=== PATIENT | female | born 1955 | race Caucasian/White ===

== ENCOUNTER 2016-07-29 08:48 | Outpatient (CLI) | payer OTHER | END 2016-07-29 08:49 | disposition home or self-care (01) | DX: Z00.00 Encounter for general adult medical examination without abnormal findings (principal); E78.2 Mixed hyperlipidemia; Z79.899 Other long term (current) drug therapy ==

== ENCOUNTER 2017-01-11 09:49 | Outpatient (CLI) | payer OTHER ==
--- NOTE | 2017-01-11 11:41 | DEXA Report ---
DEXA SCAN: 01/11/2017 CLINICAL INDICATION: Postmenopausal. TECHNIQUE: Dual energy x-ray absorptiometry (DXA) was performed on a [employer] system. Regions measured are the AP spine, femoral neck, and, if needed, forearm. COMPARISON: None. In accordance with the International Society for Clinical Densitometry (ISCD) guidelines, data from previous exams may be reanalyzed using current recommendations and techniques. This is done to allow a more accurate basis for comparison with the current study. FINDINGS: The data for the lumbar spine is as follows: REGION BMD (g/cm/cm) T-SCORE Z-SCORE L1 1.059 -0.6 1.1 L2 1.182 -0.1 1.6 L3 1.117 -0.7 1.0 L4 1.199 0.0 1.7 TOTAL 1.141 -0.3 1.4 NOTE: All evaluable vertebrae are used for classification. The data for the hip is as follows: REGION BMD (g/cm/cm) T-SCORE Z-SCORE Neck 0.871 -1.2 0.3 TOTAL 0.937 -0.6 0.7 NOTE: The femoral neck or total proximal femur, whichever is lowest, is used for classification. IMPRESSION: THE WHO CLASSIFICATION BASED ON THE INTERNATIONAL REFERENCE STANDARD IS OSTEOPENIA (REFERENCE LEFT FEMORAL NECK). THE FRACTURE RISK IS INCREASED. RECOMMENDATION: Patients with diagnosis of osteoporosis or osteopenia should have regular bone mineral density assessment. For those eligible for Medicare, routine testing is allowed once every 2 years. Testing frequency can be increased for patients who have rapidly progressing disease or for those who are receiving medical therapy to restore bone mass. COMMENT: World Health Organization (WHO) definitions for osteoporosis and osteopenia: NORMAL BMD: T-score at -1.0 or higher, fracture risk is low. OSTEOPENIA BMD: T-score between -1.0 and -2.5, fracture risk is increased. OSTEOPOROSIS BMD: T-score at -2.5 or lower, fracture risk high. National Osteoporosis Foundation recommends: 1. Obtain adequate dietary calcium (at least 1200 mg per day) and vitamin D (400 -800 international units per day). 2. Participate, as appropriate, in regular weightbearing and muscle- strengthening exercise. 3. Avoid tobacco use and reduce alcohol and caffeine intake. 4. For more detailed information see the website at www.NOF.org. MTDD
== END 2017-01-11 09:50 | disposition home or self-care (01) ==
LOC: DI 09:49
PROVIDERS: ATTEND Physician Assistant Medical
DX: M85.88 Other specified disorders of bone density and structure, other site (principal); Z78.0 Asymptomatic menopausal state
CPT/HCPCS: 77080

== ENCOUNTER 2017-01-11 09:51 | Outpatient (CLI) | payer OTHER ==
--- NOTE | 2017-01-12 16:03 | Mammography Report ---
DIGITAL SCREENING MAMMOGRAM: 01/11/2017 CLINICAL INDICATION: A 61-year-old, for screening. COMPARISON: 12/2015, 05/2015, 09/2014, 03/2014, 08/2013, 07/2012, 07/2011, 08/2009. TECHNIQUE: Routine CC and MLO projections were obtained of the breasts. Bilateral laterally exaggera marlon craniocaudal views. FINDINGS: The breasts again demonstrate heterogeneously dense fibroglandular parenchyma bilaterally. Coarse and punctate, typically benign calcifications are present. No suspicious masses, clustered mi crocalcifications, or regions of architectural distortion are identified. IMPRESSION: BENIGN FINDINGS. RECOMMENDATION: ROUTINE ANNUAL SCREENING UNLESS OTHERWISE CLINICALLY INDICATED. BIRADS CATEGORY 2-BENIGN FINDINGS. STANDARD QUALIFYING STATEMENTS 1. This examination was reviewed with the aid of Computer-Aided Detection (CAD). 2. A negative or benign imaging report should not delay biopsy if clinically suspicious findings are present. Consider surgical consultation if warranted. More than 5% of cancers are not identified by i maging. 3. Dense breasts may obscure an underlying neoplasm. JOB #: [id number] EXT JOB #:[id number]
== END 2017-01-11 09:52 | disposition home or self-care (01) ==
LOC: DI 09:51
PROVIDERS: ATTEND Physician Assistant Medical
DX: Z12.31 Encounter for screening mammogram for malignant neoplasm of breast (principal)
CPT/HCPCS: 77067

== ENCOUNTER 2017-12-07 08:56 | Outpatient (CLI) | payer OTHER ==
[2017-12-07 09:17] LABS: BASOPHILS % (AUTO) 0.8 %; EOSINOPHILS # (AUTO) 0.1 10^3/uL (0.0-0.7); HGB - HEMOGLOBIN 14.5 g/dL (12.0-16.0); LYMPHOCYTES # (AUTO) 1.3 10^3/uL (1.5-3.5); LYMPHOCYTES % (AUTO) 25.7 %; MEAN CORPUSCULAR HEMOGLOBIN 29.2 pg (27.0-31.0); MEAN CORPUSCULAR HGB CONC 33.5 g/dL (32.0-36.0); MEAN CORPUSCULAR VOLUME 87.1 fL (81.0-99.0); MEAN PLATELET VOLUME 8.4 fL (7.9-10.8); MONOCYTES # (AUTO) 0.4 10^3/uL (0.0-1.0); MONOCYTES % (AUTO) 7.6 %; NEUTROPHILS # (AUTO) 3.3 10^3/uL (1.5-6.6); NEUTROPHILS % (AUTO) 63.9 %; PLT - PLATELET COUNT 194 10^3/uL (130-450); RED BLOOD COUNT 4.95 10^6/uL (4.20-5.40); RED CELL DISTRIBUTION WIDTH 13.2 % (12.0-15.0); WHITE BLOOD COUNT 5.2 x10^3/uL (4.8-10.8)
[2017-12-07 09:42] LABS: ALBUMIN 3.9 g/dL (3.2-5.5); ALBUMIN/GLOBULIN RATIO 1.5 (1.0-2.2); ALKALINE PHOSPHATASE 62 IU/L (42-121); ALT ALANINE AMINOTRANSFERASE 30 IU/L (10-60); AST ASPARTATE AMINOTRANSFERASE 26 IU/L (10-42); BILIRUBIN,TOTAL 0.9 mg/dL (0.2-1.0); BUN - BLOOD UREA NITROGEN 15 mg/dL (6-20); CALCIUM 8.7 mg/dL (8.5-10.3); CARBON DIOXIDE - CO2 26 mmol/L (21-32); CHLORIDE 102 mmol/L (101-111); CHOL/HDL RATIO 2.4 (<4.4); CHOLESTEROL 185 mg/dL; CREATININE 0.6 mg/dL (0.4-1.0); GFR - MDRD 101 (>89); GLUCOSE 101 mg/dL (70-100); HDL CHOLESTEROL 78 mg/dL; LDL CHOLESTEROL,CALCULATED 87 mg/dL; LDL/HDL RATIO 1.1 (<4.4); SODIUM 134 mmol/L (135-145); TOTAL PROTEIN 6.5 g/dL (6.7-8.2); VLDL CHOLESTEROL 20 mg/dL
[2017-12-08 08:27] LABS: HEPATITIS C ANTIBODY NON-REACTIVE (NON-REACTIVE)
== END 2017-12-07 08:57 | disposition home or self-care (01) ==
LOC: LAB 08:56
PROVIDERS: ATTEND Internal Medicine
DX: Z00.00 Encounter for general adult medical examination without abnormal findings (principal); K21.9 Gastro-esophageal reflux disease without esophagitis; Z79.899 Other long term (current) drug therapy; Z11.59 Encounter for screening for other viral diseases; M25.50 Pain in unspecified joint; E78.2 Mixed hyperlipidemia
CPT/HCPCS: 36415; 80053; 80061; 82306; 83721; 84443; 85025; 86803

== ENCOUNTER 2018-03-29 09:55 | Outpatient (CLI) | payer OTHER ==
--- NOTE | 2018-03-30 12:02 | Mammography Report ---
Reason: SCREEN w JEANETTE Procedure Date: 03/29/2018 Accession Number: [id number] / [id number] Procedure: LARA - Screening Mammo w/Jeanette CPT Code: FULL RESULT: EXAM: Screening Mammo w/Jeanette DATE: 03/29/2018 10:44 AM CLINICAL HISTORY: Routine screening TECHNIQUE: Bilateral CC and MLO views were obtained. COMPARISON: 01/11/2017, 12/22/2015, 06/09/2015, 09/20/2014, 04/10/2014, 08/31/2013 and 08/20/2013 FINDINGS: The breast tissue is heterogeneously dense. There is no significant interval change. No suspicious masses, clustered microcalcifications, or regions of architectural distortion are identified. IMPRESSION: Negative examination RECOMMENDATION: Routine annual screening unless otherwise clinically indicated. BIRADS CATEGORY 1: Negative STANDARD QUALIFYING STATEMENTS: 1. This examination was not reviewed with the aid of Computer-Aided Detection (CAD). 2. A negative or benign imaging report should not delay biopsy if clinically suspicious findings are present. Consider surgical consultation if warrented. More than 5% of cancers are not identified by imaging. 3. Dense breasts may obscure an underlying neoplasm. 4. This examination was reviewed with the aid of 3D breast imaging (tomosynthesis).
== END 2018-03-29 09:56 | disposition home or self-care (01) ==
LOC: DI 09:55
PROVIDERS: ATTEND Physician Assistant Medical
DX: Z12.31 Encounter for screening mammogram for malignant neoplasm of breast (principal)
CPT/HCPCS: 77063; 77067

== ENCOUNTER 2018-05-01 15:48 | Outpatient (CLI) | payer OTHER ==
--- NOTE | 2018-05-02 12:53 | XRAY Report ---
Reason: CHRONIC LUMBAR PAIN Procedure Date: 05/01/2018 Accession Number: [id number] / [id number] Procedure: XR - Lumbar Spine Complete CPT Code: FULL RESULT: EXAM: LUMBOSACRAL SPINE RADIOGRAPHY EXAM DATE: 05/01/2018 04:27 PM. CLINICAL HISTORY: CHRONIC LUMBAR PAIN. COMPARISONS: None. TECHNIQUE: 5 views. FINDINGS: Alignment: 13 degrees levoconvex curvature of the thoracolumbar spine from superior T12 to inferior L4, L2 apex. Bones: Five ohj-cph-cuowaxk lumbar vertebral bodies are present. There are diminutive T12 ribs. No fractures or bone lesions. Disks: There is mild disk space narrowing at L2-L3 and L3-L4 and L4-L5. There are small anterior osteophytes. Facets: No degenerative changes. Sacroiliac Joints: Unremarkable. Soft Tissues: The visualized bowel gas pattern is normal. IMPRESSION: Mild lumbar spondylosis RADIA
--- NOTE | 2018-05-03 05:56 | XRAY Report ---
Reason: SHIFTING SENSATION AT LEVEL OF DIAPHRAGM Procedure Date: 05/01/2018 Accession Number: [id number] / [id number] Procedure: XR - Thoracic Spine 3 View CPT Code: FULL RESULT: EXAM: THORACIC SPINE RADIOGRAPHY EXAM DATE: 05/01/2018 04:27 PM. CLINICAL HISTORY: SHIFTING SENSATION AT LEVEL OF DIAPHRAGM. COMPARISON: None. TECHNIQUE: 2 views. FINDINGS: Alignment: There is mild lateral curvature of the thoracic spine. Bones: No fractures or bone lesions. Disks: Disk heights are maintained. There are small anterior osteophytes. Soft Tissues: The visualized lungs and cardiomediastinal silhouette appear normal. IMPRESSION: Mild thoracic spondylosis RADIA ADDENDUM: 05/03/18 16:46 Correction: The technique is 3 views, one frontal view and lateral flexion and lateral extension views. There are no additional findings. There is no abnormal translation with flexion and extension.
== END 2018-05-01 15:49 | disposition home or self-care (01) ==
LOC: DI 15:48
PROVIDERS: ATTEND Physician Assistant Medical
DX: M47.9 Spondylosis, unspecified (principal); M51.86 Other intervertebral disc disorders, lumbar region
CPT/HCPCS: 72072; 72110

== ENCOUNTER 2018-11-07 09:19 | Outpatient (CLI) | payer OTHER ==
[2018-11-07 09:59] LABS: BASOPHILS # (AUTO) 0.1 10^3/uL (0.0-0.1); BASOPHILS % (AUTO) 1.3 %; EOSINOPHILS # (AUTO) 0.1 10^3/uL (0.0-0.7); EOSINOPHILS % (AUTO) 1.8 %; HGB - HEMOGLOBIN 14.3 g/dL (12.0-16.0); LYMPHOCYTES # (AUTO) 1.3 10^3/uL (1.5-3.5); LYMPHOCYTES % (AUTO) 24.7 %; MEAN CORPUSCULAR HEMOGLOBIN 28.9 pg (27.0-31.0); MEAN CORPUSCULAR HGB CONC 33.4 g/dL (32.0-36.0); MEAN CORPUSCULAR VOLUME 86.4 fL (81.0-99.0); MEAN PLATELET VOLUME 8.4 fL (7.9-10.8); MONOCYTES # (AUTO) 0.5 10^3/uL (0.0-1.0); MONOCYTES % (AUTO) 8.7 %; NEUTROPHILS # (AUTO) 3.4 10^3/uL (1.5-6.6); NEUTROPHILS % (AUTO) 63.5 %; PLT - PLATELET COUNT 207 10^3/uL (130-450); RED BLOOD COUNT 4.96 10^6/uL (4.20-5.40); RED CELL DISTRIBUTION WIDTH 13.5 % (12.0-15.0); WHITE BLOOD COUNT 5.4 x10^3/uL (4.8-10.8)
[2018-11-07 10:21] LABS: ALBUMIN 3.9 g/dL (3.2-5.5); ALBUMIN/GLOBULIN RATIO 1.6 (1.0-2.2); ALKALINE PHOSPHATASE 81 IU/L (42-121); ALT ALANINE AMINOTRANSFERASE 52 IU/L (10-60); AST ASPARTATE AMINOTRANSFERASE 33 IU/L (10-42); BILIRUBIN,TOTAL 0.8 mg/dL (0.2-1.0); BUN - BLOOD UREA NITROGEN 11 mg/dL (6-20); CALCIUM 8.8 mg/dL (8.5-10.3); CARBON DIOXIDE - CO2 24 mmol/L (21-32); CHLORIDE 103 mmol/L (101-111); CHOL/HDL RATIO 2.9 (<4.4); CHOLESTEROL 189 mg/dL; CREATININE 0.6 mg/dL (0.4-1.0); GFR - MDRD 100 (>89); GLUCOSE 104 mg/dL (70-100); HDL CHOLESTEROL 65 mg/dL; LDL CHOLESTEROL,CALCULATED 99 mg/dL; LDL/HDL RATIO 1.5 (<4.4); SODIUM 138 mmol/L (135-145); TOTAL PROTEIN 6.4 g/dL (6.7-8.2); VLDL CHOLESTEROL 25 mg/dL
== END 2018-11-07 09:20 | disposition home or self-care (01) ==
LOC: LAB 09:19
PROVIDERS: ATTEND Family Medicine
DX: E78.2 Mixed hyperlipidemia (principal); M60.9 Myositis, unspecified; Z13.89 Encounter for screening for other disorder; Z79.899 Other long term (current) drug therapy; M54.9 Dorsalgia, unspecified; G25.81 Restless legs syndrome
CPT/HCPCS: 36415; 80053; 80061; 83721; 84443; 85025

== ENCOUNTER 2019-07-06 08:33 | Outpatient (CLI) | payer OTHER ==
[2019-07-06 09:20] LABS: HGB - HEMOGLOBIN 15.1 g/dL (12.0-16.0); MEAN CORPUSCULAR HEMOGLOBIN 29.8 pg (27.0-31.0); MEAN CORPUSCULAR HGB CONC 34.2 g/dL (32.0-36.0); MEAN CORPUSCULAR VOLUME 87.2 fL (81.0-99.0); MEAN PLATELET VOLUME 10.6 fL (7.9-10.8); RED BLOOD COUNT 5.07 10^6/uL (4.20-5.40); RED CELL DISTRIBUTION WIDTH 12.4 % (12.0-15.0); WHITE BLOOD COUNT 5.7 x10^3/uL (4.8-10.8)
[2019-07-06 09:38] LABS: ALBUMIN 3.9 g/dL (3.2-5.5); ALBUMIN/GLOBULIN RATIO 1.5 (1.0-2.2); ALKALINE PHOSPHATASE 69 IU/L (42-121); ALT ALANINE AMINOTRANSFERASE 30 IU/L (10-60); AST ASPARTATE AMINOTRANSFERASE 22 IU/L (10-42); BILIRUBIN,TOTAL 0.8 mg/dL (0.2-1.0); BUN - BLOOD UREA NITROGEN 11 mg/dL (6-20); CALCIUM 8.8 mg/dL (8.5-10.3); CARBON DIOXIDE - CO2 25 mmol/L (21-32); CHLORIDE 102 mmol/L (101-111); CHOL/HDL RATIO 2.6 (<4.4); CHOLESTEROL 178 mg/dL; CREATININE 0.7 mg/dL (0.4-1.0); GFR - MDRD 84 (>89); GLUCOSE 99 mg/dL (70-100); HDL CHOLESTEROL 68 mg/dL; LDL CHOLESTEROL,CALCULATED 91 mg/dL; LDL/HDL RATIO 1.3 (<4.4); SODIUM 137 mmol/L (135-145); TOTAL PROTEIN 6.5 g/dL (6.7-8.2); VLDL CHOLESTEROL 19 mg/dL
== END 2019-07-06 08:34 | disposition home or self-care (01) ==
LOC: LAB 08:33
PROVIDERS: ATTEND Family Medicine
DX: I10 Essential (primary) hypertension (principal); G47.00 Insomnia, unspecified; S13.110A Subluxation of C0/C1 cervical vertebrae, initial encounter; G25.81 Restless legs syndrome; M12.89 Other specific arthropathies, not elsewhere classified, multiple sites
CPT/HCPCS: 36415; 80053; 80061; 83721; 85027

== ENCOUNTER 2019-07-25 11:15 | Outpatient (CLI) | payer OTHER ==
--- NOTE | 2019-08-01 12:03 | Mammography Report ---
Reason: ROUTINE MAMMO Procedure Date: 07/25/2019 Accession Number: [id number] / [id number] Procedure: LARA - Screening Mammo w/Mushtaq CPT Code: Final Report FULL RESULT: EXAM: Screening Mammo w/Mushtaq DATE: 07/25/2019 11:46 AM CLINICAL HISTORY: Screening encounter. TECHNIQUE: (B) - Bilateral CC and MLO views were obtained. Cleavage view was obtained. COMPARISON: 03/29/2018 through 08/14/2009. PARENCHYMAL PATTERN: (D) - The breast(s) demonstrate(s) heterogeneously dense fibroglandular parenchyma. FINDINGS: In the right lateral breast: At the 9:00 position approximately 5 to 6 cm from the nipple as seen on CC image 27 with possible MLO correlate on image 30 are increasing calcifications with focal asymmetry. Additional spot magnification views and potentially ultrasound are needed for clarification. A grouping of retroareolar left breast calcifications demonstrates long-term stability, typically benign. There are no suspicious masses, calcifications, or areas of distortion in the left breast. IMPRESSION: Incomplete examination. BI-RADS category 0. RECOMMENDATION: (ADDMU) - Additional views using both Mammography and Ultrasound recommended. Right breast. BI-RADS CATEGORY: (0) - Incomplete Examination - need additional evaluation. STANDARD QUALIFYING STATEMENTS: 1. This examination was not reviewed with the aid of Computer-Aided Detection (CAD). 2. A negative or benign imaging report should not preclude biopsy if clinically suspicious findings are present. 3. Dense breasts may obscure an underlying neoplasm. 4. This examination was reviewed with the aid of 3D breast imaging (tomosynthesis).
== END 2019-07-25 11:16 | disposition home or self-care (01) ==
LOC: DI 11:15
PROVIDERS: ATTEND Family Medicine
DX: Z12.31 Encounter for screening mammogram for malignant neoplasm of breast (principal); R92.1 Mammographic calcification found on diagnostic imaging of breast
CPT/HCPCS: 77063; 77067

== ENCOUNTER 2019-09-04 09:59 | Outpatient (CLI) | payer OTHER ==
--- NOTE | 2019-09-04 12:03 | Mammography Report ---
Reason: ABN MAMMO - RT SPEC VIEWS Procedure Date: 09/04/2019 Accession Number: [id number] / [id number] Procedure: LARA - Diag Special Views Dig RT CPT Code: Final Report FULL RESULT: EXAM: Diag Special Views Dig RT DATE: 09/04/2019 10:43 AM CLINICAL HISTORY: Follow-up abnormal mammogram 07/25/2019 TECHNIQUE: (R) - Right CC and ML magnification views were obtained. COMPARISON: 07/25/2019 PARENCHYMAL PATTERN: (A) - The breasts demonstrate scattered fibroglandular densities bilaterally. FINDINGS: Calcifications seen on the 07/25/2019 mammogram appear to layer on the lateral projection and are only faintly seen on the CC projection. No suspicious features are identified. IMPRESSION: Probably Benign. BI-RADS category 3. RECOMMENDATION: (6MOS) - Recommend 6 month follow-up exam. Right mammogram to include magnification views. BI-RADS CATEGORY: (3) - Probably Benign. STANDARD QUALIFYING STATEMENTS: 1. This examination was not reviewed with the aid of Computer-Aided Detection (CAD). 2. A negative or benign imaging report should not preclude biopsy if clinically suspicious findings are present. 3. Dense breasts may obscure an underlying neoplasm. 4. This examination was reviewed with the aid of 3D breast imaging (tomosynthesis).
== END 2019-09-04 10:00 | disposition home or self-care (01) ==
LOC: DI 09:59
PROVIDERS: ATTEND Family Medicine
DX: R92.8 Other abnormal and inconclusive findings on diagnostic imaging of breast (principal)

== ENCOUNTER 2022-05-28 08:00 | Outpatient (CLI) | payer MEDICARE, OTHER | END 2022-05-28 23:59 | disposition home or self-care (01) | LOC: LAB.N 08:00 | PROVIDERS: ATTEND Physician Assistant | DX: R30.0 Dysuria (principal) | CPT/HCPCS: 87086; 87181 ==

== ENCOUNTER 2023-01-03 09:45 | Outpatient (CLI) | payer MEDICARE, OTHER ==
--- NOTE | 2023-01-03 13:43 | SLEEP CARE CONSULTATION ---
Information from patient questionnaire entered by Anthony Mejía. I have reviewed and concur with the information entered by Anthony Mejía. This document represents the service I personally performed and the decisions made by me, Saad Gibbons MD, [facility]. History of Present Illness Service Date and Time: 01/03/2023 0952 Reason for Visit: New patient Chief Complaint: reports: Unrefreshed sleep, Snoring, Excessive daytime sleepiness, Fatigue, Frequent awakenings at night Date of Onset: 20YRS Usual bedtime: 10PM Time it takes to fall asleep: 1MIN TO NOT HAPPENING Snores at night: Yes Observed to quit breathing while asleep: No Sleeps alone due to snoring: No Number of times waking at night: 3 Reasons for waking at night: reports: Gasping for air, Pain, Other (UNKNOWN) Toss, Turn, or Twitch while sleeping: Yes Recalls having dreams: Yes Usually gets out of bed at: 7AM Feels refreshed in the morning: No Morning headache: No Sleepy or fatigued during the day: Yes Ever fallen asleep while driving: No Takes day naps: Yes Dreams during day naps: No Prior sleep studies: Yes Year and Where: 20YRS AGO NEAR [place] Additional HPI information: I have the pleasure of seeing Ms. Lieberman today regarding the possibility of her having obstructive sleep apnea. As you know, she is a 67-year-old lady who complains of loud snore, frequent awakenings, unrefreshed sleep, persistent fatigue, and excessive daytime sleepiness for the past 20 years. She had a sleep study 20 years ago in [place] that was negative. She complains of restless leg syndrome for which she takes of methadone 5 mg at right before bedtime. The one dose takes care of the discomfort all day. She has seen a sleep neurologist. She tried all other medications for restless leg syndrome. Requip made it worse. The patient tells me that she normally goes to bed around 10 pm, and it takes her approximately just a few minutes to fall asleep. She takes zolpidem 2.5 mg every night. She has been told that she snores loudly and irregularly at night. She has never been observed to stop breathing in her sleep. Her can still sleep in the same bed. She can recall waking up on the average of 3 times during the night. Most of the time she wakes up because of restless leg sensation. She has awakened occasionally because of her own snoring, choking, and having to gasp for air. There is a lot of tossing and turning in her sleep. No somniloquy (sleep talking) or somnambulism (sleep walking). Generally, she can recall having dreams. In the morning she usually gets up out of the bed around 7 a.m. not feeling refreshed nor rested. She usually does not have a morning headache. During the day she complains of feeling sleepy and fatigued. Her score on [place] Sleepiness Scale is 9 out of 24. She never has fallen asleep while driving nor has had any accident due to sleepiness. She usually takes a 0.5 1 hour nap during the day. She reports having impaired concentration during the day. - Parasomnia Symptoms Ever been unable to move upon waking from sleep: Yes Walks in sleep: No Talks in sleep: No Ever acted out dreams in sleep: No Ever felt weak in the knees when startled or emotional: No Bothered by creepy, crawly, restless sensations in legs: Yes Problems with memory or concentration: Yes Subjective Initial [place] Sleepiness Scale score: 9 (12/31/22) Past Medical History Past Medical History: reports: Hypertension, Fibromyalgia, Anxiety, GERD, Other (HYPERLIPIDEMIA) Social History The patient's occupation is a RE. Patient is and lives in [place]. Have you smoked in the past 12 months: No Alcohol use: No Caffeine use: Yes Caffeine amount and frequency: 3MUGS A DAY Family History Family history of sleep disordered breathing: No Allergies and Home Medications Drug allergies reviewed: Yes Home medication list reviewed: Yes Review of Systems Review of systems same as previous: Yes Weight gain over past 5 years: 5 Cardiovascular: reports: high blood pressure, irregular heart rate or pulse Urinary: reports: other (URETHRAL SLING ISSUES) Psychiatric: reports: anxiety Ear/Nose/Throat: reports: dry mouth/throat, tonsillectomy, wisdom teeth removed Endocrine: reports: sluggishness, too hot or cold Musculoskeletal: reports: joint pain, neck pain, muscle pain or cramping Immunologic: reports: allergies to food or environment Physical Exam Vital signs obtained and entered by: ANTHONY Miranda MA Blood Pressure: 122/66 (LEFT ARM) Cuff size: regular Heart Rate: 66 O2 Saturation: 99 Height: 5 ft 0.5 in Weight: 133 lb 6.4 oz Body Mass Index: 25.6 BMI Classification: Overweight Neck circumference: 13.25 Mood/affect: Normal HEENT: No craniofacial malformation Nostrils: patent to airflow Turbinates: normal Septum: midline Mouth and throat: narrow oropharynx Soft palate: long Uvula visualization: 25% Mallampati Class III Tongue: normal in size Tonsils: absent bilaterally Chin and jaw: normal size and position Neck: normal w/o lymphadenopathy or thyromegaly Heart: regular rate and rhythm Lungs: clear bilaterally Extremities: no edema or clubbing Neurologic: intact Impression and Plan IMPRESSION: 1. Obstructive Sleep Apnea-Hypopnea Syndrome, as evident by history of loud and irregular snoring, frequent awakenings during the night, nocturnal choking, unrefreshed sleep, cognitive impairment, and daytime hypersomnolence. Narrow oropharynx and obesity are common predisposing factors for obstructive sleep apnea-hypopnea syndrome. Methadone may cause central sleep apnea. I recommend proceeding to polysomnography to confirm the diagnosis and to assess severity. If she has significant sleep disordered breathing, a manual CPAP titr ation study will also be performed to find the optimal treatment pressure. I informed the patient of what the sleep studies involve and after some discussion, she agreed to proceed. 2. Insomnia from restless leg syndrome and excessive time spent in bed to about 10 hours a day (9 hours at night plus 1 hour nap during the day). This is why she requires zolpidem every night. She was advised to spend no more than 7 hours in bed at night. Easiest would be for her to delay her bedtime to midnight and maintain her wakeup time at 7 am. She may continue to naps for an hour in the afternoon. 3. Restless leg syndrome responding well to methadone 1.5 mg a day. She has tried all other meds. It is reasonable that she stays on the medication. Plan: 1. Schedule polysomnography and return in 1 to 2 weeks after the study to discuss result and initiate therapy. 2. Maintain a regular wake up time and spend no more than 7 hours in bed at night. Limit her nap to 1 hour. Follow up with Sleep Care in: 1-2 months Visit Type: In Office Time Spent with Patient (minutes): 15 Provider Statement: I spent 100% of the Face to Face Visit with the patient with greater than 50% spent counseling the patient and coordination of care.
[2023-01-03 13:47] VITALS: BP 122/66
== END 2023-01-03 09:46 | disposition home or self-care (01) ==
LOC: SC 09:45
PROVIDERS: ATTEND Internal Medicine Pulmonary Disease
DX: R44.8 Other symptoms and signs involving general sensations and perceptions (principal); R53.83 Other fatigue; G47.00 Insomnia, unspecified; G47.8 Other sleep disorders; R06.83 Snoring; I10 Essential (primary) hypertension; E66.3 Overweight; Z68.25 Body mass index [BMI] 25.0-25.9, adult
CPT/HCPCS: 99202; G0463; 99212

== ENCOUNTER 2023-04-05 11:00 | Outpatient (CLI) | payer MEDICARE, OTHER ==
--- NOTE | 2023-04-05 10:51 | SLEEP CARE CONSULTATION ---
Information from patient questionnaire entered by Carmel Mejía. I have reviewed and concur with the information entered by Carmel Mejía. This document represents the service I personally performed and the decisions made by , Giovanna Esquivel ARNP. History of Present Illness Service Date and Time: 04/05/2023 1020 Initial [place] Sleepiness Scale score: 9 (12/31/22) Current [place] Sleepiness Scale score: 15 Additional HPI information: OSBALDO ORDOÑEZ returns via video telehealth visit for follow up and results of the recently performed polysomnography. The patient was informed of the following findings: No significant sleep dis ordered breathing with an average AHI of 3.6 and megha oxygen saturation of 88%. She had elevated supine AHI at 10.3. I explained the pathophysiology behind obstructive sleep apnea. Patient does not have sleep apnea and was advised how weight gain could increase the risk of developing sleep apnea in the future. Patient does not have significant sleep disordered breathing but has elevated AHI in supine position so advised positional therapy. Methods to achieve positional management therapy were discussed; such as, positioning with pillows, wearing a T-shirt with tennis balls sewn into the back, or commercially available products. Patient has loud snoring. Patient instructed to contact PCP for referral. Snoring can also be treated with an oral appliance from a dentist. Advised to check insurance coverage. In addition, an ENT evaluation can be do to see if other treatment is indicated. Patient counseled not drink alcohol less than 4 hours before bedtime as it can increase snoring and apnea. Patient was cautioned about risks of drowsy driving until sleepiness symptoms resolve. Patient denies drowsy driving. Sleep Study - Results Type of Sleep Study: Polysomnography (COMPLETED 03/09/23) Polysomnography/Home Sleep Study results: IMPRESSION: The quality of the study is fair due to partial loss of pulse oximetry signal. The patient had reduced sleep efficiency due to two prolonged awakenings during the night. The sleep a rchitecture was normal. Respiratory monitoring showed no significant sleep disordered breathing (AHI = 3.6) associated with frequent arousals, oxyhemoglobin desaturation and mild hypoxia (megha oxygen saturation of 88%). The few respiratory events occurred almost exclusively during supine sleep (supine AHI = 10.3; non-supine = 0.38). Snore was loud in intensity. There was no significant periodic leg movement of sleep. Cardiac rhythm was sinus rhythm with frequent premature atrial contractions in trigeminy pattern. No abnormal behavior (parasomnia) observed during the night. Allergies and Home Medications Known drug allergies: No Drug allergies reviewed: Yes Home medication list reviewed: Yes (no changes) Review of Systems Review of systems same as previous: Yes (no changes) Physical Exam Vital signs obtained and entered by: GIOVANNA CARRANZA Height: 5 ft 1.5 in (per pt) Weight: 126 lb (per pt) Body Mass Index: 23.4 BMI Classification: Normal Impression and Plan 1. Snoring but no significant sleep disordered breathing. However, her supine AHI was elevated at 10.3 and she should avoid sleeping supine. Patient advised that often weight loss will reduce snoring as well as apnea risk. An oral appliance can also be used for snoring. This would require a dental consultation. Patient cautioned not to use other online appliances as can cause bite issues. Patient is advised to check if insurance will cover. An ENT consult can also be helpful to determine if any other treatment is an option. 2. Hypoxemia, mild, with a megha oxygen saturation of 88% and 0.2 minutes spent under 90%. Her baseline oxygen saturation was normal with an average oxygen saturation of 94%. * Attempt to lose weight * Avoid alcohol consumption near bedtime * The patient is cautioned about driving until sleepiness is completely resolved. * Return as needed for follow up. Counseling Topics: Sleeping position Follow up with: PCP Visit Type: Telehealth Video Video Type: [employer] Patient Location: Home Location of Provider: Office Patient agrees and consents to this telehealth visit type: Yes Patient agrees to have their insurance billed: Yes Time Spent with Patient (minutes): 25 Provider Statement: I spent 100% of the Telehealth Video Call with the patient with greater than 50% spent counseling the patient and coordination of care.
== END 2023-04-05 11:01 | disposition home or self-care (01) ==
LOC: SC 11:00
PROVIDERS: ATTEND Nurse Practitioner Family
DX: R06.83 Snoring (principal); R09.02 Hypoxemia